=== PATIENT | male | born 1965 | race Caucasian/White ===

== ENCOUNTER → 2024-10-08 16:30 | Outpatient (CLI) | payer OTHER, SELFPAY ==
--- NOTE | 2024-10-08 | DI.RAD.S_ITS ---
PROCEDURE: XR HAND LT MIN 3V INDICATIONS: BILATERAL HAND PAIN TECHNIQUE: 3 views of the hand(s) acquired. COMPARISON: None. FINDINGS: Bones: No fractures or dislocations. Carpal bones are normally aligned. No suspicious bony lesions. 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 Soft tissues: No suspicious soft tissue calcifications. IMPRESSION: Mild degenerative changes, no focal osseous lesion seen. Dictated by: Kenrick Hamilton M.D. on 10/08/2024 at 20:36 Approved by: Kenrick Haimlton M.D. on 10/08/2024 at 20:37
--- NOTE | 2024-10-08 16:38 | DI.RAD.S_ITS ---
PROCEDURE: XR HAND RT MIN 3V INDICATIONS: bilateral hand pain TECHNIQUE: 3 views of the hand(s) acquired. COMPARISON: None. FINDINGS: Bones: No fractures or dislocations. Carpal bones are normally aligned. No suspicious bony lesions. Mild to moderate degenerative disease seen in the 2nd and 3rd MCP joints as well as in several DIP joints. Soft tissues: No suspicious soft tissue calcifications. IMPRESSION: Degenerative changes, no focal osseous lesion seen. Dictated by: Kenrick Hamilton M.D. on 10/08/2024 at 20:35 Approved by: Kenrick Hamilton M.D. on 10/08/2024 at 20:36
== END ==
PROVIDERS: Referring Provider Nurse Practitioner Family; Visit Provider Nurse Practitioner Family
DX: M19.041 Primary osteoarthritis, right hand (principal); M19.042 Primary osteoarthritis, left hand; M79.641 Pain in right hand; M79.642 Pain in left hand
CPT/HCPCS: 73130